=== PATIENT | female | born 1975 | race Caucasian/White ===

== ENCOUNTER 2016-10-30 07:22 | Day surgery (SDC) | payer OTHER ==
[~2016-10-30] VITALS: Ht 170.2 cm; Wt 105.5 kg
[~2016-10-30 07:22] MED LIST: ATOR20TA59 PO; BUPR100T4 PO; IBUP-1547 PO; LANS30CA44 PO; LIDOCAINE 1% (10mg/ml) 2ml SDV INJ ONE; LR 1,000 ML IV SCH; MULT-806 PO; PHEN15CA PO; TOPI25TA64 PO
[2016-10-30 07:31] VITALS: Ht 170.2 cm; Wt 105.5 kg
[2016-10-30 07:32] VITALS: BP 138/73; PULSE 78; RESP 14; TEMP 98; O2SAT 96
--- NOTE | 2016-10-30 08:38 | ANESPREOP ---
Anesthesia Record Date and Time DATE: 10/30/16 TIME: 08:36 Proposed Surgical Procedure COLONOSCOPY Allergies: Coded Allergies: Penicillins (Verified Allergy, Unknown, 10/11/16) codeine (Verified Allergy, Unknown, 10/11/16) morphine (Verified Allergy, Unknown, 10/11/16) Ht/Wt/BMI Height: 5 ' 7.00 " Weight: 105.500 kg BMI: 36.4 kg/m2 Vital Signs Date Time Temp Pulse Resp B/P Pulse Ox O2 Delivery O2 Flow Rate FiO2 10/30/16 07:32 98.0 78 14 138/73 96 Room Air Medications Inpatient Medications Current Medications Medications (Trade) Dose Ordered Sig/Jayson Start Time Stop Time Status Last Admin Dose Admin Lactated Ringer's (Lactated Ringers) 1,000 ml @ 30 mls/hr Q24H 10/30/16 07:00 10/30/16 08:21 30 MLS/HR Atorvastatin Calcium (Atorvastatin Calcium) 20 Mg Tablet, 0.5 TAB PO DAILY, ( Reported) Last Taken: on 10/29/16 0700 Bupropion HCl (Wellbutrin) 100 Mg Tablet, 1 TAB PO BID, (Reported) Last Taken: on 10/29/16 0700 Ibuprofen (Ibuprofen) 800 Mg Tablet, 800 MG PO Q8H PRN for PAIN Last Taken: on 10/14/16 Lansoprazole (Prevacid) 30 Mg Capsule.dr, 1 CAP PO DAILY, (Reported) Last Taken: on 10/29/16 0700 Multivitamins (Multivitamin) 1 Tab Tablet, 1 TAB PO DAILY, (Reported) Last Taken: on 10/29/16 0700 Phentermine HCl (Phentermine HCl) 15 Mg Capsule , 1 CAP PO DAILY, (Reported) Last Taken: on 10/14/16 Topiramate (Topiramate) 25 Mg Tablet, 1 TAB PO BID, (Reported) Last Taken: on 10/01/16 Currently on Beta Gabi: No Medical/Surgical History Anesthesia PMH: Reports: *Dyspnea, *Hypertension, Arthritis (ANKLES), Hyperlipidemia, Obesity, Reflux, Renal Disease (STONES) Smoking Status: Former smoker (quit 6 years ago) # of Packs per Day: 3/4 # of Years: 15 Use Chewing Tobacco?: No Substance Use Type: does not use Alcohol Intake: none HX of Last Menstrual Period: HYST Past Surgical History Orthopedic Surgeries: Yes - LEFT ANKLE Abdominal Surgeries: Yes - LAP VERO Genitourinary Surgeries: Yes - LITHOTRIPSY Cardiac Surgeries: No Endocrine Surgeries: No Reproductive Surgeries: Yes - 3 C-SECTIONS,X2 CERCLAGE,TUBAL,HYST Neurological Surgeries: No Ear Surgeries: No Nose Surgeries: No Throat Surgeries: No Other Surgeries: Yes - COLONOSCOPY Anesthesia Adverse Reactions: FOUND nausea and vomiting, FOUND other Hx of Motion Sickness: No Physical Exam Respiratory: Bilat breath sounds equal, Lungs clear Cardiovascular: FOUND Regular rate, rhythm Airway Assessment Mallampati Score: I Neck Extension: Fair Overall Assessment: May Be Diff Intubation (obesity) ASA: 3 Plan Anesthesia Plan: TIVA, GETA Discussion Discussed risks/options/alternatives of anesthesia and questions answered. Patient consents. Nursing pain assessment noted. Present: Family Member Attestation Statement Prior to the delivery of any anesthetic medication, I examined the patient, developed the plan, obtained the patient's consent and discussed the risk and benefits of the procedure with the patient/guardian. MORIS GARCIA CRNA Oct 30, 2016 08:38
[2016-10-30] MEDS ORDERED: LIDOCAINE 1% (10mg/ml) 2ml SDV ONE (09:34)
[2016-10-30] MEDS ORDERED: PROPOFOL 500mg 50 ML IV ONE (09:34)
[2016-10-30] MEDS ORDERED: FENTANYL 100mcg/2ml INJECTION ONE (09:55)
[2016-10-30 10:15] VITALS: BP 89/50; PULSE 75; RESP 12; TEMP 98; O2SAT 95
[2016-10-30 10:30] VITALS: BP 117/64; PULSE 66; RESP 13; O2SAT 94
[2016-10-30 10:43] VITALS: BP 113/69; PULSE 76; RESP 18; O2SAT 99
--- NOTE | 2016-10-30 10:50 | ANESPO ---
Post-Op Note Date 10/30/16 Time: 10:49 Status Pt Participated in Evaluation: Pt participated in person Vital Signs Date Time Temp Pulse Resp B/P Pulse Ox O2 Delivery O2 Flow Rate FiO2 10/30/16 10:43 76 18 113/69 99 Room Air 10/30/16 10:15 98.0 Respiratory Function: Airway patent, Regular respirations Cardiovascular Function: Regular pulse Pain Level Intensity: 0 Hydration: Taking po fluids, IV infusing Complications during Recovery None apparent Post-Anesthesia Notes pt.ana. well Follow-Up Instructions Instructions Per Surgeon Additional Information none BEATRIZ PATEL CRNA Oct 30, 2016 10:50
--- NOTE | 2016-10-30 13:58 | OPNOTEF ---
DATE OF SERVICE 10/30/2016 SURGEON Gus Luciano MD PREOPERATIVE DIAGNOSIS Personal history for adenomatous colon polyps. POSTOPERATIVE DIAGNOSIS Personal history for adenomatous colon polyps, colonic polyp x1 at 40 cm from the anal verge. PROCEDURE Colonoscopy with polypectomy via cold biopsy technique. ANESTHESIA TIVA BRIEF HISTORY/INDICATIONS Mrs. Martinez is a 41-year-old female who last year had underwent a colonoscopy and was found to have multiple adenomatous colon polyps. She was found to have a fairly large polyp at 25 cm from the anal verge that was a couple of centimeters in diameter. Given the number of polyps and the increased size of one of these polyps, it was recommended that she undergo a short-term followup at a one-year interval. Patient presents today to undergo this procedure. FINDINGS Upon colonoscopy the patient was not found to have any evidence for angiodysplastic lesions, diverticula or lauren malignancies. She was found to have a single polyp at 40 cm from the anal verge that was on the order of about 5-6 mm in diameter. This polyp was grasped and removed in its entirety via cold biopsy technique. DESCRIPTION OF PROCEDURE After informed consent was obtained, the patient was brought to the endoscopy suite and placed on the table in left lateral decubitus position. The patient subsequently underwent total intravenous anesthesia by the nurse adjunct mathematics instructor per my request. A formal time out was then completed. Next, a digital rectal examination was performed. Normal sphincter tone. No rectal masses were appreciated. An Olympus colonoscope was inserted in the anus and advanced through the lumen of the colon under direct visualization at all times until the cecum was ascertained. Triangulation of the teniae coli, ileocecal valve and appendiceal lumen were all visualized. The scope was then slowly withdrawn, again while maintaining visualization of the lumen at all times. As the scope was being slowly withdrawn, a single polyp at 40 cm from the anal verge was identified as discussed above. This polyp was grasped and removed in its entirety via cold biopsy technique and submitted for pathologic evaluation. Colonoscope was then continued to be slowly withdrawn until it was brought forth back into the rectal vault. A J-maneuver was performed. No worrisome perianal pathology was noted. Scope was allowed to straighten and withdrawn through the anal verge. The patient tolerated the procedure without difficulty and was sent back to the preop area in stable condition. We will await the biopsy results from today's single polypectomy and will proceed accordingly with further recommendations thereafter. [facility]
== END 2016-10-30 11:05 | disposition home or self-care (01) ==
LOC: NSC 07:22
PROVIDERS: ATTEND Surgery
DX: D12.6 Benign neoplasm of colon, unspecified (principal); Z86.010 Personal history of colon polyps; J30.9 Allergic rhinitis, unspecified; F32.9 Major depressive disorder, single episode, unspecified; K21.9 Gastro-esophageal reflux disease without esophagitis; E78.4 Other hyperlipidemia; E28.2 Polycystic ovarian syndrome; Z79.899 Other long term (current) drug therapy; Z87.891 Personal history of nicotine dependence
CPT/HCPCS: 45380; J3010; J7120